=== PATIENT | male | born 1990 | race Caucasian/White ===

== ENCOUNTER 2020-04-11 00:30 | Emergency (ER) | payer OTHER ==
[~2020-04-11] VITALS: Ht 177.8 cm; Wt 77.1 kg
[2020-04-11 00:36] VITALS: BP 125/90
[2020-04-11 01:30] VITALS: BP 125/90
== END 2020-04-11 01:03 | disposition home or self-care (01) ==
LOC: MED 00:30
DX: S42.002A Fracture of unspecified part of left clavicle, initial encounter for closed fracture (principal); F12.10 Cannabis abuse, uncomplicated; V49.9XXA Car occupant (driver) (passenger) injured in unspecified traffic accident, initial encounter; Y93.89 Activity, other specified; Y92.89 Other specified places as the place of occurrence of the external cause; Y99.8 Other external cause status
CPT/HCPCS: 73030; 99283